=== PATIENT | male | born 2000 | race Caucasian/White ===

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

== ENCOUNTER 2023-01-21 14:47 | Emergency (ER) | payer BC ==
[2023-01-21] MEDS ORDERED: LIDOCAINE 1% INJ 10MG/ML (20 ML MDV) SQ ONE (15:59)
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
[2023-01-21 17:22] VITALS: BP 136/74; PULSE 80; RESP 16; TEMP 97.5
== END 2023-01-21 17:07 | disposition home or self-care (01) ==
LOC: EC 14:47
DX: S61.412A Laceration without foreign body of left hand, initial encounter (principal); F17.290 Nicotine dependence, other tobacco product, uncomplicated; Z88.0 Allergy status to penicillin; W26.8XXA Contact with other sharp object(s), not elsewhere classified, initial encounter
CPT/HCPCS: 12002; 99282; J2001